=== PATIENT | female | born 1940 | race Two or more races ===

== ENCOUNTER 2022-10-08 16:30 | Emergency (ER) | payer OTHER ==
[~2022-10-08] VITALS: Ht 160 cm; Wt 57.2 kg
[2022-10-08] MEDS ORDERED: COZAAR50 MG PO (16:36)
== END 2022-10-08 21:15 | disposition home or self-care (01) ==
LOC: ER 16:30
DX: M54.59 Other low back pain (principal); S32.048A Other fracture of fourth lumbar vertebra, initial encounter for closed fracture; S32.038A Other fracture of third lumbar vertebra, initial encounter for closed fracture; W18.39XA Other fall on same level, initial encounter; Y93.89 Activity, other specified; Y92.018 Other place in single-family (private) house as the place of occurrence of the external cause; I10 Essential (primary) hypertension; M51.36 Other intervertebral disc degeneration, lumbar region
CPT/HCPCS: 72148

== ENCOUNTER 2022-11-09 09:23 | Outpatient (CLI) | payer OTHER ==
[~2022-11-09 09:23] MED LIST: COZAAR50 MG PO
== END 2022-11-09 09:27 | disposition home or self-care (01) ==
LOC: RAD 09:23
PROVIDERS: ATTEND Orthopaedic Surgery Orthopaedic Surgery of the Spine
DX: S32.048A Other fracture of fourth lumbar vertebra, initial encounter for closed fracture (principal)

== ENCOUNTER 2023-01-02 07:30 | Outpatient (CLI) | payer OTHER | END 2023-01-02 07:43 | disposition home or self-care (01) | LOC: RAD 07:30 | PROVIDERS: ATTEND Orthopaedic Surgery Orthopaedic Surgery of the Spine | DX: S32.048 Other fracture of fourth lumbar vertebra (principal) ==

== ENCOUNTER 2024-04-15 18:00 | Emergency (ER) | payer OTHER ==
[~2024-04-15] VITALS: Ht 160 cm; Wt 52.2 kg
[2024-04-15] MEDS ORDERED: 0.9 % SODIUM CHLORIDE 500 ML IV ONE (18:45)
[2024-04-15] MEDS ORDERED: FAMOtidine 10 MG/ML (4ML VIAL) IV ONE (18:45)
[2024-04-15] MEDS ORDERED: ONDANSETRON HCL 2 MG/ML VIAL IV ONE (18:45)
[2024-04-15 20:03] LABS: HEMOGLOBIN 12.8 g/dL (12.0-15.00); MEAN CELL VOLUME 97.5 fL (80.00-100.00); MEAN CORPUSCULAR HEMOGLOBIN 32.8 pg (27.00-32.0); MEAN CORPUSCULAR HGB CONC 33.7 g/dl (32.0-36.0); PLATELET COUNT 235 K/uL (150-450); RED CELL DISTRIBUTION WIDTH 13.8 % (11.5-14.5)
[2024-04-15 20:33] LABS: PARTIAL THROMBOPLASTIN TIME 26.2 SECONDS (22.0-34.0); PROTHROMBIN TIME 10.9 SECONDS (9.0-11.5)
[2024-04-15 20:40] LABS: ALBUMIN 4.1 gm/dL (3.4-5.0); BILIRUBIN TOTAL 0.59 mg/dL (0.3-1.2); CALCIUM 9.8 mg/dL (8.5-10.1); CREATININE SERUM 0.69 mg/dL (0.55-1.02); GFR 81.45; GLOBULINA 4.6 G/DL (2.4-3.5); POTASSIUM 3.87 mEq/L (3.5-5.1); TOTAL PROTEIN 8.7 gm/dL (6.4-8.2)
[2024-04-15 22:12] LABS: PH,URINE 6.5 (5.0-8.0); URINE APPEARANCE Clear; URINE BILIRRUBIN Negative (NEGATIVE); URINE BLOOD Moderate; URINE COLOR Yellow; URINE GLUCOSE Negative (NEGATIVE); URINE KETONE 15 (NEGATIVE); URINE LEUKOCYTE Trace; URINE NITRATE Negative; URINE UROBILINOGEN 0.2 E.U./dl
[2024-04-15 22:16] LABS: URINE BACTERIA 16.3 uL (0.0-1933); URINE EPITHELIAL CELLS 3.3 uL (0.0-38.8); URINE RBC 179.8 uL (0.0-20.8); URINE WBC 42.9 uL (0.0-23.2)
[2024-04-15 22:18] LABS: URINE PROTEIN 100 (NEGATIVE)
== END 2024-04-15 22:35 | disposition home or self-care (01) ==
LOC: ER 18:00
PROVIDERS: General Practice
DX: K59.00 Constipation, unspecified (principal); R11.0 Nausea; I10 Essential (primary) hypertension
CPT/HCPCS: 36415; 71045; 74177; 93005; 96365; 96366; 99284; J2405; J3490; J7042; Q9965

== ENCOUNTER 2024-04-18 16:50 | Emergency (ER) | payer OTHER ==
[~2024-04-18] VITALS: Ht 154.9 cm; Wt 49.9 kg
[2024-04-18] MEDS ORDERED: NAMENDA XR28 MG (16:59)
[2024-04-18] MEDS ORDERED: RIVASTIGMINE3 MG (16:59)
[2024-04-18] MEDS ORDERED: 0.9 % SODIUM CHLORIDE 1,000 ML IV STA (17:27)
[2024-04-18] MEDS ORDERED: PANTOPRAZOLE SODIUM 40 MG/VIAL VIAL IV ONE (17:30)
[2024-04-18] MEDS ORDERED: FAMOtidine 10 MG/ML (4ML VIAL) IV ONE (17:30)
[2024-04-18] MEDS ORDERED: LORazepam 2 MG/ML VIAL IM ONE (17:45)
[2024-04-18 17:47] LABS: HEMATOCRIT 36.3 % (36.0-45.00); HEMOGLOBIN 12.4 g/dL (12.0-15.00); MEAN CELL VOLUME 96.6 fL (80.00-100.00); MEAN CORPUSCULAR HEMOGLOBIN 33.1 pg (27.00-32.0); MEAN CORPUSCULAR HGB CONC 34.2 g/dl (32.0-36.0); PLATELET COUNT 233 K/uL (150-450); RED BLOOD COUNT 3.76 M/uL (4.00-6.00); RED CELL DISTRIBUTION WIDTH 13.7 % (11.5-14.5)
[2024-04-18 18:08] LABS: ALBUMIN 3.7 gm/dL (3.4-5.0); BILIRUBIN TOTAL 0.45 mg/dL (0.3-1.2); CALCIUM 9.4 mg/dL (8.5-10.1); CREATININE SERUM 0.85 mg/dL (0.55-1.02); GFR 64.03; GLOBULINA 4.1 G/DL (2.4-3.5); POTASSIUM 3.63 mEq/L (3.5-5.1); TOTAL PROTEIN 7.8 gm/dL (6.4-8.2)
== END 2024-04-18 20:06 | disposition home or self-care (01) ==
LOC: ER 16:52
PROVIDERS: Emergency Medicine
DX: F41.8 Other specified anxiety disorders (principal); F03.90 Unspecified dementia, unspecified severity, without behavioral disturbance, psychotic disturbance, mood disturbance, and anxiety; K29.70 Gastritis, unspecified, without bleeding
CPT/HCPCS: 36415; 96365; 96366; 96372; 99282; J3490; J7030